=== PATIENT | female | born 1965 | race Caucasian/White ===

== ENCOUNTER 2017-06-05 11:40 | Emergency (ER) | payer OTHER ==
[~2017-06-05] VITALS: Ht 160 cm; Wt 68.0 kg
[~2017-06-05 11:40] MED LIST: WELLBUTRIN XL300 MG
== END 2017-06-05 14:50 | disposition home or self-care (01) ==
LOC: ER 11:40
DX: J11.1 Influenza due to unidentified influenza virus with other respiratory manifestations (principal); K29.00 Acute gastritis without bleeding; B34.9 Viral infection, unspecified